=== PATIENT | female | born 1930 | race African-American/Black ===

== ENCOUNTER 2017-05-08 08:58 | Emergency (ER) | payer MEDICARE, BC ==
[~2017-05-08] VITALS: Ht 157.5 cm; Wt 71.0 kg
[~2017-05-08 08:58] MED LIST: AMLO10TA80 PO; ASPI-1159 PO; COLC0.6T66 PO; LEVO112T2 PO; NITR0.4T49 SL
[2017-05-08] MEDS ORDERED: METO-293 PO (09:15)
[2017-05-08] MEDS ORDERED: ALIR75PE SQ (09:15)
[2017-05-08] MEDS ORDERED: LOPHC5 GT (09:15)
[2017-05-08] MEDS ORDERED: [UNRECOGNIZED DRUG - OTHER] (09:15)
[2017-05-08] MEDS ORDERED: TLXL5 GT (09:15)
[2017-05-08 10:03] LABS: HEMATOCRIT. 40.7 % (36.0-48.0); HEMOGLOBIN. 13.4 g/dL (12.0-16.0); MEAN CORPUSCULAR HEMOGLOBIN 32.1 pg (28.0-32.0); MEAN CORPUSCULAR VOLUME 97.5 fL (81.0-99.0); MEAN PLATELET VOLUME 7.2 fl (7.4-10.4); PLATELET 213 x1000/uL (130-400); RED BLOOD CELL COUNT 4.18 mill/uL (4.2-5.4); RED CELL DISTRIBUTION WIDTH 13.7 % (11.6-14.6)
[2017-05-08 10:09] LABS: CHLORIDE 109 mEq/L (98-107)
[2017-05-08 10:12] LABS: PROTHROMBIN TIME 9.9 sec (9.4-11.6)
[2017-05-08 10:18] LABS: CARBON DIOXIDE 22 mEq/L (21-32)
[2017-05-08 10:20] LABS: CLARITY URINE CLOUDY (CLEAR); COLOR URINE YELLOW (YELLOW); GLUCOSE URINE NEGATIVE (NEGATIVE); KETONES URINE NEGATIVE (NEGATIVE); LEUKOCYTE ESTERASE URINE 3+ (NEGATIVE); NITRITE URINE POSITIVE (NEGATIVE); OCCULT BLOOD URINE 2+ (NEGATIVE); PROTEIN URINE 1+ (NEGATIVE); SPECIFIC GRAVITY URINE 1.015 (1.005-1.030); UROBILINOGEN URINE 0.2 E.U./dL (0.2-1.0)
[2017-05-08] MEDS ORDERED: CEFTRIAXONE 1 G PREMIX 50 ML IV ONE (10:30)
[2017-05-08 10:37] LABS: PLATELET ESTIMATE NORMAL
[2017-05-08] MEDS ORDERED: ONDANSETRON HCL 4MG TABLET PO ONE (12:45)
[2017-05-08 13:44] VITALS: BP 124/70
== END 2017-05-08 13:46 | disposition home or self-care (01) ==
LOC: ER 09:32
DX: N39.0 Urinary tract infection, site not specified (principal); I10 Essential (primary) hypertension; E78.00 Pure hypercholesterolemia, unspecified; I25.10 Atherosclerotic heart disease of native coronary artery without angina pectoris; E78.5 Hyperlipidemia, unspecified; Z98.890 Other specified postprocedural states; Z79.82 Long term (current) use of aspirin; Z88.0 Allergy status to penicillin; Z88.5 Allergy status to narcotic agent; Z95.1 Presence of aortocoronary bypass graft
CPT/HCPCS: 36415; 71010; 80053; 81001; 83605; 85025; 85610; 87040; 87077; 87086; 87186; 93005; 96365; 99285; J0696; Q0162

== ENCOUNTER 2017-06-30 15:51 | Emergency (ER) | payer MEDICARE, BC ==
[~2017-06-30] VITALS: Ht 162.6 cm; Wt 70.0 kg
[~2017-06-30 15:51] MED LIST changes: +ALIR75PE SQ; +LOPHC5 GT; +TLXL5 GT; +[UNRECOGNIZED DRUG - OTHER]
[2017-06-30 16:54] VITALS: BP 138/78
[2017-06-30] MEDS ORDERED: ACETAMINOPHEN 325MG TABLET PO ONE (21:00)
== END 2017-06-30 22:21 | disposition home or self-care (01) ==
LOC: ER 15:51
DX: S93.602A Unspecified sprain of left foot, initial encounter (principal); I11.9 Hypertensive heart disease without heart failure; Z88.6 Allergy status to analgesic agent; Z88.3 Allergy status to other anti-infective agents; Z79.82 Long term (current) use of aspirin; Z95.1 Presence of aortocoronary bypass graft; Z90.10 Acquired absence of unspecified breast and nipple; Z87.891 Personal history of nicotine dependence; X50.1XXA Overexertion from prolonged static or awkward postures, initial encounter; Y93.89 Activity, other specified; Y92.89 Other specified places as the place of occurrence of the external cause
CPT/HCPCS: 73630; 99284

== ENCOUNTER 2018-04-05 13:33 | Inpatient (IN) | payer MEDICARE, BC ==
[~2018-04-05] VITALS: Ht 160 cm; Wt 71.8 kg
[~2018-04-05 13:33] MED LIST changes: +ACET-2178 PO; -ALIR75PE SQ; +AMLO5TAB88 PO; +AZIL40TA PO; +LEVO100T PO; -LEVO112T2 PO; -LOPHC5 GT; +METO-539 PO; -TLXL5 GT; -[UNRECOGNIZED DRUG - OTHER]
[2018-04-05 16:24] LABS: HEMATOCRIT. 34.8 % (36.0-48.0); HEMOGLOBIN. 11.4 g/dL (12.0-16.0); MEAN CORPUSCULAR HEMOGLOBIN 31.4 pg (28.0-32.0); MEAN CORPUSCULAR VOLUME 95.8 fL (81.0-99.0); MEAN PLATELET VOLUME 7.5 fl (7.4-10.4); PLATELET 207 x1000/uL (130-400); RED BLOOD CELL COUNT 3.64 mill/uL (4.2-5.4)
[2018-04-05 16:29] LABS: CHLORIDE 112 mEq/L (98-107)
[2018-04-05 16:30] LABS: PROTHROMBIN TIME 9.9 sec (9.1-11.1)
[2018-04-05 16:42] LABS: CLARITY URINE TURBID (CLEAR); COLOR URINE YELLOW (YELLOW); KETONES URINE NEGATIVE (NEGATIVE); LEUKOCYTE ESTERASE URINE 3+ (NEGATIVE); NITRITE URINE NEGATIVE (NEGATIVE); OCCULT BLOOD URINE 2+ (NEGATIVE); PH URINE 5.5 (4.5-8.0); PROTEIN URINE 2+ (NEGATIVE); SPECIFIC GRAVITY URINE 1.016 (1.005-1.030); UROBILINOGEN URINE 0.2 E.U./dL (0.2-1.0)
[2018-04-05] MEDS ORDERED: SODIUM CHLORIDE 0.9% 1,000 ML IV ONE (17:45)
[2018-04-05] MEDS ORDERED: CEFTRIAXONE 1 G PREMIX 50 ML IV ONE (17:45)
[2018-04-05 18:08] LABS: PLATELET ESTIMATE NORMAL
[2018-04-05 21:30] VITALS: BP 135/64
[2018-04-05] MEDS ORDERED: ALIR75PE SQ (23:33)
[2018-04-06] VITALS: BP 142/65
[2018-04-06] MEDS ORDERED: MAGNESIUM HYDROXIDE 400MG/5ML 30ML UDC PO PRN (01:45)
[2018-04-06] MEDS ORDERED: ZOLPIDEM TARTRATE 5MG TABLET PO PRN (01:45)
[2018-04-06] MEDS ORDERED: ACETAMINOPHEN 325MG TABLET PO PRN (02:00)
[2018-04-06] MEDS ORDERED: ACETAMINOPHEN WITH CODEINE 300/30MG TABLET PO PRN (02:00)
[2018-04-06] MEDS ORDERED: NITROGLYCERIN 0.4MG TABLET SL SL PRN (02:15)
[2018-04-06 04:00] VITALS: BP 116/59
[2018-04-06] MEDS: LEVOTHYROXINE SODIUM 100MCG TABLET PO SCH (06:42)
[2018-04-06 07:05] LABS: HEMATOCRIT 32.9 % (36.0-48.0); HEMOGLOBIN 10.8 g/dL (12.0-16.0); MEAN CORPUSCULAR HEMOGLOBIN 31.5 pg (28.0-32.0); MEAN CORPUSCULAR VOLUME 96.4 fL (81.0-99.0); PLATELET 185 x1000/uL (130-400); RED BLOOD CELL COUNT 3.41 mill/uL (4.2-5.4); RED CELL DISTRIBUTION WIDTH 15.5 % (11.6-14.6)
[2018-04-06 07:45] LABS: CHLORIDE 112 mEq/L (98-107)
[2018-04-06 08:00] VITALS: BP 116/51
[2018-04-06] MEDS: AMLODIPINE 10MG TABLET PO SCH (09:00)
[2018-04-06] MEDS: LOSARTAN POTASSIUM 25 MG TABLET PO SCH (09:00)
[2018-04-06] MEDS ORDERED: AZILSARTAN MEDOXOMIL PO SCH (09:00)
[2018-04-06] MEDS: COLCHICINE 0.6MG TABLET PO SCH (09:41)
[2018-04-06] MEDS: ASPIRIN 81MG TABLET PO SCH (09:41)
[2018-04-06] MEDS: METOPROLOL TARTRATE 50MG TABLET PO SCH ×2 (09:42→20:56)
[2018-04-06] MEDS ORDERED: CLONIDINE 0.1MG TABLET PO PRN (11:00)
[2018-04-06] MEDS ORDERED: CLONIDINE 0.2MG TABLET PO PRN (11:00)
[2018-04-06 12:00] VITALS: BP 119/64
[2018-04-06] MEDS ORDERED: CEFTRIAXONE 1 G PREMIX 50 ML IV SCH (17:00)
[2018-04-06] MEDS: CEFTRIAXONE 1 G PREMIX 50 ML IV SCH (17:32)
[2018-04-06 20:00] VITALS: BP 146/75
[2018-04-06] MEDS: AMLODIPINE 5MG TABLET PO SCH (20:55)
[2018-04-06] MEDS ORDERED: LORAZEPAM 1MG TABLET PO PRN (21:00)
[2018-04-07] VITALS: BP 113/69
[2018-04-07 04:00] VITALS: BP 145/77
[2018-04-07 06:26] LABS: BASOPHILS % 0.6 % (0.0-2.0); EOSINOPHILS % 0.2 % (0.0-5.0); HEMATOCRIT. 32.9 % (36.0-48.0); HEMOGLOBIN. 10.9 g/dL (12.0-16.0); LYMPHOCYTES % 10.1 % (20.0-50.0); MEAN CORPUSCULAR HEMOGLOBIN 31.6 pg (28.0-32.0); MEAN CORPUSCULAR VOLUME 95.4 fL (81.0-99.0); MEAN PLATELET VOLUME 8.5 fl (7.4-10.4); MONOCYTES % 7.5 % (2.0-8.0); NEUTROPHILS % 81.6 % (40.0-76.0); PLATELET 174 x1000/uL (130-400); RED BLOOD CELL COUNT 3.45 mill/uL (4.2-5.4); RED CELL DISTRIBUTION WIDTH 15.9 % (11.6-14.6)
[2018-04-07] MEDS: LEVOTHYROXINE SODIUM 100MCG TABLET PO SCH (06:26)
[2018-04-07 08:00] VITALS: BP 157/77
[2018-04-07] MEDS: ASPIRIN 81MG TABLET PO SCH (08:51)
[2018-04-07] MEDS: COLCHICINE 0.6MG TABLET PO SCH (08:51)
[2018-04-07] MEDS: METOPROLOL TARTRATE 50MG TABLET PO SCH ×2 (08:51→20:08)
[2018-04-07] MEDS: LOSARTAN POTASSIUM 25 MG TABLET PO SCH (08:51)
[2018-04-07] MEDS: AMLODIPINE 10MG TABLET PO SCH (08:51)
[2018-04-07 12:00] VITALS: BP 147/76
[2018-04-07 16:00] VITALS: BP 132/80
[2018-04-07] MEDS: CEFTRIAXONE 1 G PREMIX 50 ML IV SCH (17:41)
[2018-04-07 19:53] VITALS: BP 156/70
[2018-04-07] MEDS: AMLODIPINE 5MG TABLET PO SCH (20:08)
[2018-04-08] VITALS: BP 133/59
[2018-04-08 03:54] VITALS: BP 144/66
[2018-04-08] MEDS: LEVOTHYROXINE SODIUM 100MCG TABLET PO SCH (06:25)
[2018-04-08 07:58] VITALS: BP 143/68
[2018-04-08] MEDS: COLCHICINE 0.6MG TABLET PO SCH (08:46)
[2018-04-08] MEDS: LOSARTAN POTASSIUM 25 MG TABLET PO SCH (08:46)
[2018-04-08] MEDS: ASPIRIN 81MG TABLET PO SCH (08:46)
[2018-04-08] MEDS: METOPROLOL TARTRATE 50MG TABLET PO SCH (08:47)
[2018-04-08] MEDS: AMLODIPINE 10MG TABLET PO SCH (08:47)
== END 2018-04-08 11:15 | disposition home or self-care (01) | DRG 872 ==
LOC: ER 14:32 → 6WST 17:52 → ENRESERV 19:52
PROVIDERS: ADMIT Specialist; ATTEND Specialist
DX: A41.51 Sepsis due to Escherichia coli [E. coli] (principal); N39.0 Urinary tract infection, site not specified; E86.0 Dehydration; I10 Essential (primary) hypertension; I25.10 Atherosclerotic heart disease of native coronary artery without angina pectoris; E78.00 Pure hypercholesterolemia, unspecified; Z96.643 Presence of artificial hip joint, bilateral; E03.9 Hypothyroidism, unspecified; E78.5 Hyperlipidemia, unspecified; K59.00 Constipation, unspecified; M19.90 Unspecified osteoarthritis, unspecified site; Z82.49 Family history of ischemic heart disease and other diseases of the circulatory system; Z95.1 Presence of aortocoronary bypass graft; Z88.6 Allergy status to analgesic agent; Z88.1 Allergy status to other antibiotic agents; Z85.3 Personal history of malignant neoplasm of breast; Z90.13 Acquired absence of bilateral breasts and nipples; Z88.8 Allergy status to other drugs, medicaments and biological substances; Z79.82 Long term (current) use of aspirin; Z79.899 Other long term (current) drug therapy; Z90.89 Acquired absence of other organs; Z87.81 Personal history of (healed) traumatic fracture
CPT/HCPCS: 36415; 71045; 76770; 83605; 83735; 83880; 84443; 84484; 85027; 85379; 87077; 87186; 93005; 96365; 99285; J0696; J7030; J7040

== ENCOUNTER 2018-09-05 12:55 | Inpatient (IN) | payer MEDICARE, BC ==
[~2018-09-05] VITALS: Ht 160 cm; Wt 62.4 kg
[~2018-09-05 12:55] MED LIST changes: +ALIR75PE SQ
[2018-09-05] MEDS ORDERED: PANTOPRAZOLE SODIUM 40 MG/VIAL IV STA (14:18)
[2018-09-05] MEDS ORDERED: ACETAMINOPHEN 500MG TABLET PO STA (14:18)
[2018-09-05] MEDS ORDERED: SODIUM CHLORIDE 0.9% 1,000 ML IV ONE (14:18)
[2018-09-05 15:06] LABS: BASOPHILS % 0.7 % (0.0-2.0); EOSINOPHILS % 1.5 % (0.0-5.0); HEMATOCRIT. 27.8 % (36.0-48.0); LYMPHOCYTES % 9.8 % (20.0-50.0); MEAN CORPUSCULAR HEMOGLOBIN 32.1 pg (28.0-32.0); MEAN CORPUSCULAR VOLUME 99.1 fL (81.0-99.0); MONOCYTES % 8.8 % (2.0-8.0); NEUTROPHILS % 79.2 % (40.0-76.0); PLATELET 222 x1000/uL (130-400); RED BLOOD CELL COUNT 2.81 mill/uL (4.2-5.4); RED CELL DISTRIBUTION WIDTH 16.1 % (11.6-14.6)
[2018-09-05 15:11] LABS: CHLORIDE 114 mEq/L (98-107)
[2018-09-05 15:13] LABS: INR 0.9; PROTHROMBIN TIME 9.5 sec (9.1-11.1)
[2018-09-05 15:25] LABS: CLARITY URINE CLEAR (CLEAR); COLOR URINE YELLOW (YELLOW); KETONES URINE NEGATIVE (NEGATIVE); LEUKOCYTE ESTERASE URINE NEGATIVE (NEGATIVE); NITRITE URINE NEGATIVE (NEGATIVE); OCCULT BLOOD URINE NEGATIVE (NEGATIVE); PROTEIN URINE NEGATIVE (NEGATIVE); SPECIFIC GRAVITY URINE 1.017 (1.005-1.030); UROBILINOGEN URINE 0.2 E.U./dL (0.2-1.0)
[2018-09-05] MEDS ORDERED: ACETAMINOPHEN 325MG TABLET PO ONE (19:45)
[2018-09-05 22:00] VITALS: BP 133/70
[2018-09-05 23:41] LABS: HEMATOCRIT 24.6 % (36.0-48.0); HEMOGLOBIN 7.9 g/dL (12.0-16.0)
[2018-09-06] VITALS (12 sets, daily range): BP systolic 112–133; BP diastolic 46–72
[2018-09-06 01:38] LABS: VITAMIN B12 SERUM 361 pg/mL (211-911)
[2018-09-06 01:45] LABS: FOLIC ACID (FOLATE) SERUM > 20.00 ng/mL (>5.38)
[2018-09-06] MEDS ORDERED: ACETAMINOPHEN 325MG TABLET PO PRN (01:45)
[2018-09-06] MEDS ORDERED: ZOLPIDEM TARTRATE 5MG TABLET PO PRN (01:45)
[2018-09-06] MEDS ORDERED: VITA400C71 MT (03:40)
[2018-09-06] MEDS ORDERED: PANTOPRAZOLE SODIUM 40 MG/VIAL IV SCH (05:00)
[2018-09-06] MEDS: DEXT 5%/0.45% NACL 1000ML 1,000 ML IV SCH ×2 (05:54→23:57)
[2018-09-06 06:37] LABS: EOSINOPHILS % 3.9 % (0.0-5.0); HEMATOCRIT. 25.6 % (36.0-48.0); HEMOGLOBIN. 8.4 g/dL (12.0-16.0); LYMPHOCYTES % 21.1 % (20.0-50.0); MEAN CORPUSCULAR HEMOGLOBIN 32.6 pg (28.0-32.0); MEAN PLATELET VOLUME 7.2 fl (7.4-10.4); PLATELET 217 x1000/uL (130-400); RED BLOOD CELL COUNT 2.56 mill/uL (4.2-5.4); RED CELL DISTRIBUTION WIDTH 15.8 % (11.6-14.6)
[2018-09-06 06:45] LABS: PARTIAL THROMBOPLASTIN TIME 23.2 sec (23.4-31.0); PROTHROMBIN TIME 9.7 sec (9.1-11.1)
[2018-09-06 07:10] LABS: CHLORIDE 115 mEq/L (98-107)
[2018-09-06 07:19] LABS: PHOSPHORUS 3.2 mg/dL (2.5-4.9)
[2018-09-06] MEDS ORDERED: ACETAMINOPHEN WITH CODEINE 300/30MG TABLET PO PRN (10:15)
[2018-09-06] MEDS ORDERED: NITROGLYCERIN 0.4MG TABLET SL SL PRN (10:15)
[2018-09-06] MEDS ORDERED: FENTANYL CITRATE/PF 50MCG/ML 2ML VIAL ONE (15:11)
[2018-09-06] MEDS ORDERED: MIDAZOLAM HCL 5 MG/5 ML VIAL ONE (15:12)
[2018-09-06] MEDS ORDERED: SIMETHICONE 40 MG/0.6 ML 30ML ONE (15:26)
[2018-09-06 19:36] LABS: HEMATOCRIT 24.5 % (36.0-48.0)
[2018-09-06] MEDS: METOPROLOL TARTRATE 50MG TABLET PO SCH (20:46)
[2018-09-07] VITALS (15 sets, daily range): BP systolic 114–156; BP diastolic 48–88
[2018-09-07 06:35] LABS: HEMATOCRIT 22.3 % (36.0-48.0); HEMOGLOBIN 7.3 g/dL (12.0-16.0)
[2018-09-07 07:25] LABS: CHLORIDE 116 mEq/L (98-107)
[2018-09-07] MEDS: LEVOTHYROXINE SODIUM 100MCG TABLET PO SCH (11:27)
[2018-09-07] MEDS: METOPROLOL TARTRATE 50MG TABLET PO SCH ×2 (11:29→20:43)
[2018-09-07] MEDS ORDERED: LIDOCAINE HCL 1% 20ML VIAL (Pyxis) INJ ONE (12:51)
[2018-09-07] MEDS ORDERED: SODIUM BICARBONATE 4% (2.4MEQ) 5ML VIAL IV ONE (12:51)
[2018-09-07] MEDS: DEXT 5%/0.45% NACL 1000ML 1,000 ML IV SCH (20:43)
[2018-09-08] VITALS (12 sets, daily range): BP systolic 116–152; BP diastolic 57–78
[2018-09-08 00:20] LABS: HEMATOCRIT 30.9 % (36.0-48.0); HEMOGLOBIN 10.3 g/dL (12.0-16.0)
[2018-09-08] MEDS: LEVOTHYROXINE SODIUM 100MCG TABLET PO SCH (06:32)
[2018-09-08 07:20] LABS: HEMATOCRIT 27.2 % (36.0-48.0)
[2018-09-08] MEDS: METOPROLOL TARTRATE 50MG TABLET PO SCH ×2 (08:46→21:00)
[2018-09-08 12:48] LABS: CHLORIDE 112 mEq/L (98-107)
[2018-09-08 14:09] LABS: FERRITIN 30 ng/mL (10-291)
[2018-09-09] VITALS (10 sets, daily range): BP systolic 101–141; BP diastolic 52–85
[2018-09-09 06:27] LABS: PARTIAL THROMBOPLASTIN TIME 24.4 sec (23.4-31.0); PROTHROMBIN TIME 10.1 sec (9.1-11.1)
[2018-09-09 06:41] LABS: EOSINOPHILS % 6.9 % (0.0-5.0); HEMATOCRIT. 27.7 % (36.0-48.0); HEMOGLOBIN. 9.2 g/dL (12.0-16.0); LYMPHOCYTES % 21.5 % (20.0-50.0); MEAN CORPUSCULAR VOLUME 96.5 fL (81.0-99.0); MEAN PLATELET VOLUME 6.9 fl (7.4-10.4); MONOCYTES % 13.5 % (2.0-8.0); NEUTROPHILS % 57.1 % (40.0-76.0); PLATELET 220 x1000/uL (130-400); RED BLOOD CELL COUNT 2.87 mill/uL (4.2-5.4); RED CELL DISTRIBUTION WIDTH 16.6 % (11.6-14.6)
[2018-09-09 07:19] LABS: CHLORIDE 111 mEq/L (98-107)
[2018-09-09] MEDS: METOPROLOL TARTRATE 50MG TABLET PO SCH (08:22)
[2018-09-09] MEDS: LEVOTHYROXINE SODIUM 100MCG TABLET PO SCH (08:22)
[2018-09-09] MEDS ORDERED: CLOPIDOGREL 75MG TABLET PO SCH (09:00)
[2018-09-09] MEDS ORDERED: CLOP75TA16 PO ×2 (15:22→15:23)
[2018-09-09] MEDS ORDERED: MAGNESIUM HYDROXIDE 400MG/5ML 30ML UDC PO PRN (18:00)
== END 2018-09-09 17:10 | disposition home or self-care (01) | DRG 378 ==
LOC: ER 12:55 → 5EST 15:19 → EDBEDREQ 15:30 → ENRESERV 20:09
PROVIDERS: ADMIT Specialist; ATTEND Specialist
PROC: 30233N1 Transfusion of Nonautologous Red Blood Cells into Peripheral Vein, Percutaneous Approach (ICD-10-PCS; principal; 2018-09-07)
PROC: 0DB68ZX Excision of Stomach, Via Natural or Artificial Opening Endoscopic, Diagnostic (ICD-10-PCS; 2018-09-07)
PROC: 02HV33Z Insertion of Infusion Device into Superior Vena Cava, Percutaneous Approach (ICD-10-PCS; 2018-09-07)
PROC: B5181ZA Fluoroscopy of Superior Vena Cava using Low Osmolar Contrast, Guidance (ICD-10-PCS; 2018-09-07)
PROC: B548ZZA Ultrasonography of Superior Vena Cava, Guidance (ICD-10-PCS; 2018-09-07)
DX: K29.61 Other gastritis with bleeding (principal); D62 Acute posthemorrhagic anemia; I82.512 Chronic embolism and thrombosis of left femoral vein; K29.31 Chronic superficial gastritis with bleeding; E87.5 Hyperkalemia; I10 Essential (primary) hypertension; I25.10 Atherosclerotic heart disease of native coronary artery without angina pectoris; I48.91 Unspecified atrial fibrillation; E78.00 Pure hypercholesterolemia, unspecified; E03.9 Hypothyroidism, unspecified; E61.1 Iron deficiency; E78.5 Hyperlipidemia, unspecified; K22.2 Esophageal obstruction; K44.9 Diaphragmatic hernia without obstruction or gangrene; M10.9 Gout, unspecified; Z96.643 Presence of artificial hip joint, bilateral; M19.90 Unspecified osteoarthritis, unspecified site; Z79.02 Long term (current) use of antithrombotics/antiplatelets; Z79.82 Long term (current) use of aspirin; Z82.49 Family history of ischemic heart disease and other diseases of the circulatory system; Z85.3 Personal history of malignant neoplasm of breast; Z87.440 Personal history of urinary (tract) infections; Z87.891 Personal history of nicotine dependence; Z90.13 Acquired absence of bilateral breasts and nipples; Z95.1 Presence of aortocoronary bypass graft; Z88.1 Allergy status to other antibiotic agents; Z88.8 Allergy status to other drugs, medicaments and biological substances; Z87.81 Personal history of (healed) traumatic fracture; Z79.899 Other long term (current) drug therapy
CPT/HCPCS: 36415; 36569; 71045; 76700; 76937; 77001; 78278; 80048; 80076; 82607; 82728; 82746; 83540; 83550; 83605; 83735; 84100; 84443; 84484; 85014; 85018; 85044; 86850; 86900; 86920; 88305; 88312; 88313; 93005; 93970; 96365; 96366; 96375; 99285; A9560; C1725; C9113; J2250; J3010; J3490; J7030; J7050; P9016

== ENCOUNTER 2019-07-05 10:57 | Emergency (ER) | payer BC, MEDICARE ==
[~2019-07-05] VITALS: Ht 165.1 cm; Wt 63.0 kg
[~2019-07-05 10:57] MED LIST changes: -ACET-2178 PO; -ASPI-1159 PO; +CLOP75TA4 PO; +TOPUD PO; +VITA400C71 MT
[2019-07-05 12:34] VITALS: BP 109/59
[2019-07-05] MEDS ORDERED: ACETAMINOPHEN 500MG TABLET PO NR (14:30)
== END 2019-07-05 15:04 | disposition home or self-care (01) ==
LOC: ER 10:57
DX: M79.671 Pain in right foot (principal); I10 Essential (primary) hypertension; I25.10 Atherosclerotic heart disease of native coronary artery without angina pectoris; E78.00 Pure hypercholesterolemia, unspecified; Z95.1 Presence of aortocoronary bypass graft; Z85.9 Personal history of malignant neoplasm, unspecified
CPT/HCPCS: 73630; 99283

== ENCOUNTER 2019-08-09 13:19 | Emergency (ER) | payer MEDICARE, BC ==
[~2019-08-09] VITALS: Ht 157.5 cm; Wt 61.0 kg
[2019-08-09] MEDS ORDERED: ACETAMINOPHEN 325MG TABLET PO ONE (17:15)
[2019-08-09 19:17] VITALS: BP 186/97
== END 2019-08-09 19:19 | disposition home or self-care (01) ==
LOC: ER 13:19
DX: S62.164A Nondisplaced fracture of pisiform, right wrist, initial encounter for closed fracture (principal); S70.11XA Contusion of right thigh, initial encounter; E78.00 Pure hypercholesterolemia, unspecified; I10 Essential (primary) hypertension; N61.1 Abscess of the breast and nipple; I25.10 Atherosclerotic heart disease of native coronary artery without angina pectoris; Z85.9 Personal history of malignant neoplasm, unspecified; Z96.649 Presence of unspecified artificial hip joint; Z95.1 Presence of aortocoronary bypass graft; Z88.3 Allergy status to other anti-infective agents; W01.0XXA Fall on same level from slipping, tripping and stumbling without subsequent striking against object, initial encounter; Y93.89 Activity, other specified; Y92.512 Supermarket, store or market as the place of occurrence of the external cause
CPT/HCPCS: 29125; 73110; 73130; 73502; 73552; 99284

== ENCOUNTER 2020-01-20 13:08 | Inpatient (IN) | payer MEDICARE, BC ==
[~2020-01-20] VITALS: Ht 160 cm; Wt 60.8 kg
[2020-01-20] MEDS ORDERED: ONDANSETRON HCL 4MG/2ML INJ IV STA (14:03)
[2020-01-20] MEDS ORDERED: MORPHINE SULFATE 4 MG/ML CPJ (NOT FOR IM USE) IV STA (14:03)
[2020-01-20] MEDS ORDERED: SODIUM CHLORIDE 0.9% 1,000 ML IV ONE (14:03)
[2020-01-20] MEDS ORDERED: HYDRALAZINE 20MG/ML VIAL IV ONE (14:30)
[2020-01-20 14:40] LABS: BASOPHILS % 0.9 % (0.0-2.0); EOSINOPHILS % 0.3 % (0.0-5.0); HEMATOCRIT. 40.2 % (36.0-48.0); HEMOGLOBIN. 13.3 g/dL (12.0-16.0); LYMPHOCYTES % 12.2 % (20.0-50.0); MEAN CORPUSCULAR HEMOGLOBIN 32.8 pg (28.0-32.0); MEAN CORPUSCULAR VOLUME 99.1 fL (81.0-99.0); MEAN PLATELET VOLUME 7.3 fl (7.4-10.4); MONOCYTES % 4.2 % (2.0-8.0); NEUTROPHILS % 82.4 % (40.0-76.0); PLATELET 249 x1000/uL (130-400); RED BLOOD CELL COUNT 4.06 mill/uL (4.2-5.4); RED CELL DISTRIBUTION WIDTH 13.7 % (11.6-14.6)
[2020-01-20 14:46] LABS: CHLORIDE 107 mEq/L (98-107)
[2020-01-20 15:02] LABS: CLARITY URINE CLEAR (CLEAR); COLOR URINE YELLOW (YELLOW); KETONES URINE NEGATIVE (NEGATIVE); LEUKOCYTE ESTERASE URINE NEGATIVE (NEGATIVE); NITRITE URINE NEGATIVE (NEGATIVE); OCCULT BLOOD URINE NEGATIVE (NEGATIVE); PH URINE 7.5 (4.5-8.0); PROTEIN URINE 2+ (NEGATIVE); SPECIFIC GRAVITY URINE 1.011 (1.005-1.030); UROBILINOGEN URINE 0.2 E.U./dL (0.2-1.0)
[2020-01-20 15:04] LABS: INR 0.9; PARTIAL THROMBOPLASTIN TIME 25.7 sec (23.4-31.0)
[2020-01-20] MEDS ORDERED: AZITHROMYCIN 500 MG in DEXT 5% WATER 250 ML IV ONE (16:30)
[2020-01-20] MEDS ORDERED: CEFTRIAXONE 1 G PREMIX 50 ML IV ONE (16:30)
[2020-01-20] MEDS ORDERED: LABETALOL 5MG/ML SYR 20 MG/4 ML SYRINGE IV ONE (19:00)
[2020-01-20] MEDS ORDERED: CLONIDINE 0.2MG TABLET PO ONE (19:00)
[2020-01-20] MEDS ORDERED: DEXT 5%/0.45% NACL 1000ML 1,000 ML IV SCH (19:18)
[2020-01-20] MEDS ORDERED: ACETAMINOPHEN 325MG TABLET PO PRN (19:30)
[2020-01-20] MEDS: FAMOTIDINE 20MG/2ML VIAL IV SCH (20:00)
[2020-01-20 21:50] VITALS: BP_SYST 167; BP_SYST 219; BP_DIAS 77
[2020-01-20] MEDS ORDERED: LEVO25TA7 PO (23:21)
[2020-01-20] MEDS: HYDRALAZINE 20MG/ML VIAL IV PRN (23:25)
[2020-01-20] MEDS ORDERED: DONE10TA43 PO (23:55)
[2020-01-20] MEDS ORDERED: CELE100C97 PO (23:55)
[2020-01-20] MEDS ORDERED: FOLI-43 PO (23:55)
[2020-01-20] MEDS ORDERED: HYDR-4134 PO (23:55)
[2020-01-21] VITALS (8 sets, daily range): BP systolic 90–167; BP diastolic 32–79
[2020-01-21] MEDS: ACETAMINOPHEN 325MG TABLET PO PRN ×2 (03:08→08:49)
[2020-01-21 07:58] LABS: BASOPHILS % 0.3 % (0.0-2.0); HEMATOCRIT. 35.5 % (36.0-48.0); HEMOGLOBIN. 11.6 g/dL (12.0-16.0); LYMPHOCYTES % 19.2 % (20.0-50.0); MEAN CORPUSCULAR HEMOGLOBIN 32.1 pg (28.0-32.0); MEAN CORPUSCULAR VOLUME 98.8 fL (81.0-99.0); MEAN PLATELET VOLUME 7.5 fl (7.4-10.4); MONOCYTES % 7.6 % (2.0-8.0); NEUTROPHILS % 72.9 % (40.0-76.0); PLATELET 227 x1000/uL (130-400); RED CELL DISTRIBUTION WIDTH 13.9 % (11.6-14.6)
[2020-01-21 07:59] LABS: CHLORIDE 107 mEq/L (98-107)
[2020-01-21] MEDS: CLOPIDOGREL 75MG TABLET PO SCH (08:38)
[2020-01-21] MEDS: FAMOTIDINE 20MG/2ML VIAL IV SCH (08:39)
[2020-01-21] MEDS: LOSARTAN POTASSIUM 50 MG TABLET PO SCH ×2 (08:39→21:15)
[2020-01-21] MEDS: AMLODIPINE 5MG TABLET PO SCH ×2 (08:39→21:15)
[2020-01-21] MEDS: TRAMADOL 50MG TABLET PO PRN (12:27)
[2020-01-21] MEDS: HYDRALAZINE 20MG/ML VIAL IV PRN (12:28)
[2020-01-21] MEDS: IPRATROPIUM/ALBUTEROL 0.5-3(2.5)MG/3ML NEB HHN SCH ×2 (15:44→18:00)
[2020-01-21] MEDS: CEFTRIAXONE 1,000 MG in DEXTROSE 5% WATER 50 ML IV SCH (17:22)
[2020-01-21] MEDS: AZITHROMYCIN 500 MG in DEXT 5% WATER 250 ML IV SCH (17:23)
[2020-01-21] MEDS: DEXT 5%/0.45% NACL 1000ML 1,000 ML IV SCH (17:52)
[2020-01-21] MEDS: HYDRALAZINE HCL 25MG TABLET PO SCH (21:15)
[2020-01-21] MEDS: METOPROLOL TARTRATE 25MG TABLET PO SCH (21:15)
[2020-01-22] VITALS: BP 160/85
[2020-01-22 04:30] VITALS: BP 165/85
[2020-01-22] MEDS: HYDRALAZINE HCL 25MG TABLET PO SCH ×3 (05:18→21:36)
[2020-01-22] MEDS: LEVOTHYROXINE SODIUM 25MCG TABLET PO SCH (05:18)
[2020-01-22] MEDS: DEXT 5%/0.45% NACL 1000ML 1,000 ML IV SCH ×2 (05:50→21:36)
[2020-01-22 08:00] VITALS: BP 157/86
[2020-01-22] MEDS: IPRATROPIUM/ALBUTEROL 0.5-3(2.5)MG/3ML NEB HHN SCH ×3 (08:15→20:03)
[2020-01-22] MEDS ORDERED: CLOPIDOGREL 75MG TABLET PO SCH (09:00)
[2020-01-22] MEDS: AMLODIPINE 5MG TABLET PO SCH ×2 (09:49→20:32)
[2020-01-22] MEDS: CLOPIDOGREL 75MG TABLET PO SCH (09:49)
[2020-01-22] MEDS: FAMOTIDINE 20MG/2ML VIAL IV SCH (09:49)
[2020-01-22] MEDS: DONEPEZIL HCL 10MG TABLET PO SCH (09:49)
[2020-01-22] MEDS: METOPROLOL TARTRATE 25MG TABLET PO SCH ×2 (09:49→20:32)
[2020-01-22] MEDS: FOLIC ACID 1MG TABLET PO SCH (09:50)
[2020-01-22] MEDS: LOSARTAN POTASSIUM 50 MG TABLET PO SCH ×2 (09:50→20:32)
[2020-01-22 12:00] VITALS: BP 164/79
[2020-01-22] MEDS: HYDRALAZINE 20MG/ML VIAL IV PRN ×2 (12:45→16:19)
[2020-01-22] MEDS: TRAMADOL 50MG TABLET PO PRN (13:11)
[2020-01-22] MEDS: ONDANSETRON HCL 4MG/2ML INJ IV PRN ×2 (13:19→17:48)
[2020-01-22 15:57] VITALS: BP 177/72
[2020-01-22] MEDS: AZITHROMYCIN 500 MG in DEXT 5% WATER 250 ML IV SCH (16:18)
[2020-01-22] MEDS: CEFTRIAXONE 1,000 MG in DEXTROSE 5% WATER 50 ML IV SCH (16:18)
[2020-01-22 20:00] VITALS: BP 155/65
[2020-01-22 21:27] LABS: CLARITY URINE CLEAR (CLEAR); COLOR URINE YELLOW (YELLOW); KETONES URINE NEGATIVE (NEGATIVE); LEUKOCYTE ESTERASE URINE NEGATIVE (NEGATIVE); NITRITE URINE NEGATIVE (NEGATIVE); OCCULT BLOOD URINE NEGATIVE (NEGATIVE); PROTEIN URINE 2+ (NEGATIVE); SPECIFIC GRAVITY URINE 1.019 (1.005-1.030); UROBILINOGEN URINE 0.2 E.U./dL (0.2-1.0)
[2020-01-23] VITALS (7 sets, daily range): BP systolic 130–187; BP diastolic 60–85
[2020-01-23] MEDS: IPRATROPIUM/ALBUTEROL 0.5-3(2.5)MG/3ML NEB HHN SCH ×3 (02:29→12:04)
[2020-01-23] MEDS: LEVOTHYROXINE SODIUM 25MCG TABLET PO SCH (06:01)
[2020-01-23] MEDS: HYDRALAZINE HCL 25MG TABLET PO SCH ×3 (06:01→22:28)
[2020-01-23] MEDS: DONEPEZIL HCL 10MG TABLET PO SCH (08:44)
[2020-01-23] MEDS: DEXT 5%/0.45% NACL 1000ML 1,000 ML IV SCH (08:44)
[2020-01-23] MEDS: FAMOTIDINE 20MG/2ML VIAL IV SCH (08:44)
[2020-01-23] MEDS: CLOPIDOGREL 75MG TABLET PO SCH (08:45)
[2020-01-23] MEDS: AMLODIPINE 5MG TABLET PO SCH ×2 (08:45→20:59)
[2020-01-23] MEDS: METOPROLOL TARTRATE 25MG TABLET PO SCH ×2 (08:45→20:58)
[2020-01-23] MEDS: LOSARTAN POTASSIUM 50 MG TABLET PO SCH ×2 (08:45→20:59)
[2020-01-23] MEDS: FOLIC ACID 1MG TABLET PO SCH (08:45)
[2020-01-23] MEDS: ONDANSETRON HCL 4MG/2ML INJ IV PRN (12:58)
[2020-01-23] MEDS: HYDRALAZINE 20MG/ML VIAL IV PRN (12:59)
[2020-01-23] MEDS: CEFTRIAXONE 1,000 MG in DEXTROSE 5% WATER 50 ML IV SCH (15:29)
[2020-01-23] MEDS: AZITHROMYCIN 500 MG in DEXT 5% WATER 250 ML IV SCH (15:29)
[2020-01-23] MEDS ORDERED: MORPHINE SULFATE 2 MG/ML CPJ (NOT FOR IM USE) IV PRN (15:40)
[2020-01-23] MEDS ORDERED: METOCLOPRAMIDE HCL 10MG/2ML VIAL IV PRN (16:05)
[2020-01-23] MEDS ORDERED: HYDRALAZINE 20MG/ML VIAL IV PRN ×2 (16:15→16:30)
[2020-01-23] MEDS: ACETAMINOPHEN 325MG TABLET PO PRN (18:49)
[2020-01-23] MEDS ORDERED: MORPHINE SULFATE 4 MG/ML CPJ (NOT FOR IM USE) IV PRN (20:00)
[2020-01-24] VITALS (7 sets, daily range): BP systolic 145–182; BP diastolic 65–94
[2020-01-24] MEDS: IPRATROPIUM/ALBUTEROL 0.5-3(2.5)MG/3ML NEB HHN SCH ×4 (01:20→21:13)
[2020-01-24] MEDS: LEVOTHYROXINE SODIUM 25MCG TABLET PO SCH (05:59)
[2020-01-24] MEDS: HYDRALAZINE HCL 25MG TABLET PO SCH ×3 (05:59→21:27)
[2020-01-24] MEDS: AMLODIPINE 5MG TABLET PO SCH ×2 (09:19→21:28)
[2020-01-24] MEDS: METOPROLOL TARTRATE 25MG TABLET PO SCH (09:19)
[2020-01-24] MEDS: CLOPIDOGREL 75MG TABLET PO SCH (09:19)
[2020-01-24] MEDS: FOLIC ACID 1MG TABLET PO SCH (09:19)
[2020-01-24] MEDS: FAMOTIDINE 20MG/2ML VIAL IV SCH (09:20)
[2020-01-24] MEDS: LOSARTAN POTASSIUM 50 MG TABLET PO SCH ×2 (09:20→21:27)
[2020-01-24] MEDS: PANTOPRAZOLE SODIUM 40 MG/VIAL IV SCH (09:20)
[2020-01-24] MEDS: DONEPEZIL HCL 10MG TABLET PO SCH (09:20)
[2020-01-24 09:43] LABS: TOTAL IRON BINDING CAPACITY 227 ug/dL (250-450)
[2020-01-24] MEDS: DEXT 5%/0.45% NACL 1000ML 1,000 ML IV SCH (11:10)
[2020-01-24] MEDS ORDERED: MAGNESIUM HYDROXIDE 400MG/5ML 30ML UDC PO PRN (15:00)
[2020-01-24] MEDS: CEFTRIAXONE 1,000 MG in DEXTROSE 5% WATER 50 ML IV SCH (15:13)
[2020-01-24] MEDS: AZITHROMYCIN 500 MG in DEXT 5% WATER 250 ML IV SCH (16:14)
[2020-01-24] MEDS: DOCUSATE SODIUM 100MG CAPSULE PO SCH (17:13)
[2020-01-24 18:15] LABS: VITAMIN B12 SERUM 446 pg/mL (211-911)
[2020-01-24] MEDS: METOPROLOL TARTRATE 50MG TABLET PO SCH (21:28)
[2020-01-25] VITALS (7 sets, daily range): BP systolic 103–177; BP diastolic 61–88
[2020-01-25] MEDS: DEXT 5%/0.45% NACL 1000ML 1,000 ML IV SCH ×2 (00:30→14:11)
[2020-01-25] MEDS: HYDRALAZINE HCL 25MG TABLET PO SCH ×2 (05:16→14:11)
[2020-01-25] MEDS: LEVOTHYROXINE SODIUM 25MCG TABLET PO SCH (05:45)
[2020-01-25] MEDS: ACETAMINOPHEN 325MG TABLET PO PRN (05:55)
[2020-01-25] MEDS: IPRATROPIUM/ALBUTEROL 0.5-3(2.5)MG/3ML NEB HHN SCH ×2 (08:13→13:26)
[2020-01-25] MEDS: PANTOPRAZOLE SODIUM 40 MG/VIAL IV SCH (08:30)
[2020-01-25] MEDS: DOCUSATE SODIUM 100MG CAPSULE PO SCH ×2 (08:30→17:33)
[2020-01-25] MEDS: CLOPIDOGREL 75MG TABLET PO SCH (08:30)
[2020-01-25] MEDS: LOSARTAN POTASSIUM 50 MG TABLET PO SCH (08:30)
[2020-01-25] MEDS: FAMOTIDINE 20MG/2ML VIAL IV SCH (08:30)
[2020-01-25] MEDS: FOLIC ACID 1MG TABLET PO SCH (08:30)
[2020-01-25] MEDS: AMLODIPINE 5MG TABLET PO SCH (08:31)
[2020-01-25] MEDS: DONEPEZIL HCL 10MG TABLET PO SCH (08:31)
[2020-01-25] MEDS: METOPROLOL TARTRATE 50MG TABLET PO SCH (08:31)
[2020-01-25] MEDS: CEFTRIAXONE 1,000 MG in DEXTROSE 5% WATER 50 ML IV SCH (15:36)
[2020-01-25] MEDS: AZITHROMYCIN 500 MG in DEXT 5% WATER 250 ML IV SCH (16:00)
[2020-01-26 09:09] LABS: FOLATE HEMATOCRIT 37.4 % (34.0-46.6)
[2020-01-27 13:10] LABS: FOLATE RBC 1393 ng/mL (>498)
== END 2020-01-25 21:39 | disposition home or self-care (01) | DRG 74 ==
LOC: ER 13:08 → 7WST 17:02 → EDBEDREQTM 17:06 → EDBEDREQ 17:06 → ENRESERV 20:08 → CANRESERV 20:08 → ENRESERV 20:53 → 5WST 01-21 09:25
PROVIDERS: ADMIT Internal Medicine; ATTEND Internal Medicine
DX: G90.8 Other disorders of autonomic nervous system (principal); N17.9 Acute kidney failure, unspecified; I82.512 Chronic embolism and thrombosis of left femoral vein; I13.0 Hypertensive heart and chronic kidney disease with heart failure and stage 1 through stage 4 chronic kidney disease, or unspecified chronic kidney disease; I16.0 Hypertensive urgency; K80.20 Calculus of gallbladder without cholecystitis without obstruction; I10 Essential (primary) hypertension; K57.30 Diverticulosis of large intestine without perforation or abscess without bleeding; N18.9 Chronic kidney disease, unspecified; I25.10 Atherosclerotic heart disease of native coronary artery without angina pectoris; F03.90 Unspecified dementia, unspecified severity, without behavioral disturbance, psychotic disturbance, mood disturbance, and anxiety; I50.9 Heart failure, unspecified; N28.1 Cyst of kidney, acquired; D64.9 Anemia, unspecified; E03.9 Hypothyroidism, unspecified; E78.00 Pure hypercholesterolemia, unspecified; Z96.643 Presence of artificial hip joint, bilateral; E78.5 Hyperlipidemia, unspecified; N28.89 Other specified disorders of kidney and ureter; Z79.82 Long term (current) use of aspirin; Z85.3 Personal history of malignant neoplasm of breast; Z87.440 Personal history of urinary (tract) infections; Z90.13 Acquired absence of bilateral breasts and nipples; Z95.1 Presence of aortocoronary bypass graft; Z79.899 Other long term (current) drug therapy; Z88.1 Allergy status to other antibiotic agents; Z88.8 Allergy status to other drugs, medicaments and biological substances; Z03.818 Encounter for observation for suspected exposure to other biological agents ruled out
CPT/HCPCS: 36415; 71045; 74018; 74176; 76700; 80048; 80053; 81003; 82607; 82747; 83540; 83550; 83605; 83880; 84439; 84443; 84484; 85014; 85025; 85379; 86304; 93005; 93970; 94640; 99285; C9113; J0360; J0456; J0696; J2270; J2405; J2765; J3490; J7030; J7060; U0003-CS

== ENCOUNTER 2020-01-28 18:50 | Emergency (ER) | payer MEDICARE, BC ==
[~2020-01-28] VITALS: Ht 160 cm; Wt 54.0 kg
[~2020-01-28 18:50] MED LIST changes: -ALIR75PE SQ; -AMLO10TA80 PO; -AMLO5TAB88 PO; -AZIL40TA PO; +CELE100C97 PO; -COLC0.6T66 PO; +DONE10TA43 PO; +FOLI-43 PO; +HYDR-4134 PO; -LEVO100T PO; +LEVO25TA7 PO; -NITR0.4T49 SL; -TOPUD PO; -VITA400C71 MT
[2020-01-28] MEDS ORDERED: SODIUM CHLORIDE 0.9% 1,000 ML IV ONE (20:30)
[2020-01-28 21:24] LABS: HEMATOCRIT. 41.7 % (36.0-48.0); HEMOGLOBIN. 13.8 g/dL (12.0-16.0); MEAN CORPUSCULAR HEMOGLOBIN 31.9 pg (28.0-32.0); MEAN CORPUSCULAR VOLUME 96.6 fL (81.0-99.0); MEAN PLATELET VOLUME 7.1 fl (7.4-10.4); PLATELET 274 x1000/uL (130-400); RED BLOOD CELL COUNT 4.31 mill/uL (4.2-5.4); RED CELL DISTRIBUTION WIDTH 13.4 % (11.6-14.6)
[2020-01-28 21:27] LABS: CHLORIDE 103 mEq/L (98-107)
[2020-01-28 21:35] LABS: PROTHROMBIN TIME 10.7 sec (9.6-11.0)
[2020-01-28 21:53] LABS: PLATELET ESTIMATE NORMAL
[2020-01-28 22:08] LABS: CLARITY URINE CLEAR (CLEAR); COLOR URINE YELLOW (YELLOW); KETONES URINE NEGATIVE (NEGATIVE); LEUKOCYTE ESTERASE URINE NEGATIVE (NEGATIVE); NITRITE URINE NEGATIVE (NEGATIVE); OCCULT BLOOD URINE NEGATIVE (NEGATIVE); PROTEIN URINE 3+ (NEGATIVE); SPECIFIC GRAVITY URINE 1.021 (1.005-1.030); UROBILINOGEN URINE 0.2 E.U./dL (0.2-1.0)
[2020-01-28] MEDS ORDERED: POTASSIUM CHLORIDE 20MEQ TABLET SR PO SCH (23:00)
[2020-01-29 01:33] VITALS: BP 191/86
== END 2020-01-29 01:44 | disposition home or self-care (01) ==
LOC: ER 18:50 → CANBEDREQ 01-29 06:36
DX: E86.0 Dehydration (principal); E87.6 Hypokalemia; I10 Essential (primary) hypertension; I25.10 Atherosclerotic heart disease of native coronary artery without angina pectoris; Z95.1 Presence of aortocoronary bypass graft; Z85.3 Personal history of malignant neoplasm of breast
CPT/HCPCS: 36415; 70450; 71045; 80053; 81003; 83735; 84484; 85025; 85610; 93005; 96360; 99285; J7030